=== PATIENT | male | born 1980 | race Caucasian/White ===

== ENCOUNTER 2018-08-30 21:49 | Emergency (ER) | payer OTHER ==
[~2018-08-30] VITALS: Ht 172.7 cm; Wt 77.2 kg
[~2018-08-30 21:49] MED LIST: DOCU-144 PO; MAG355OR14 PO; OMEP20CA16 PO
[2018-08-30 22:05] VITALS: Ht 172.7 cm; Wt 77.2 kg
[2018-08-31] MEDS ORDERED: LIDOCAINE/MYLANTA 40 ML BTL PO ONE (00:30)
--- NOTE | 2018-08-31 00:38 | ERD ---
ER Documentation Chief Complaint Chief Complaint GEN ABD PAIN; NO OTHER S/S X1HR HPI This is a 38-year-old male patient presents emergency room with complaint of non-radiating periumbilical abdominal pain starting approximately 3 hours [employer]. States pain is not related to eating as he did not eat dinner due to the pain. No nausea, no vomiting, pain is non-radiating cramping, no recent injury, no recent travel, no sick contacts. History significant for gastritis, appendectomy 23 years ago. Patient states he had bowel movement this morning which was "normal." No dysuria. Patient states he has a small mass in his left testicle that is being evaluated by his primary care provider. Denies any scrotal pain or penile discharge, no recent weight loss, no unusual bruising, no hematuria. Patient denies alcohol use. No recent fevers or illnesses. Patient is alert, appropriate behavior, NAD at time of evaluation. ROS All systems reviewed and are negative except as per history of present illness. Medications Home Meds Active Scripts Docusate Sodium* (Colace*) 100 Mg Capsule, 100 MG PO DAILY for 10 Days, #10 CAP Prov:TORI INFANTE NP 08/31/18 Mag Hydrox/Al Hydrox/Simeth (Maalox Advanced Suspension) 355 Ml Oral.susp, 10 ML PO BID for Indigestion for 10 Days, #200 ML Prov:TORI INFANTE NP 08/31/18 Omeprazole* (Omeprazole*) 20 Mg Capsule.dr, 20 MG PO DAILY for 30 Days, #30 CAP Prov:TORI INFANTE NP 08/31/18 Reported Medications [none] Unknown Strength No Conflict Check 09/09/15 Allergies Allergies: Coded Allergies: No Known Allergy (Unverified , 09/09/15) PMhx/Soc History of Surgery: Yes (APPENDECTOMY) Anesthesia Reaction: No Hx Neurological Disorder: No Hx Respiratory Disorders: No Hx Cardiac Disorders: No Hx Psychiatric Problems: No Hx Miscellaneous Medical Probl: No Hx Alcohol Use: Yes (ON WEEKENDS) Hx Substance Use: No Hx Tobacco Use: No Smoking Status: Never smoker FmHx Family History: No diabetes, No coronary disease, No other Physical Exam Vitals Vital Signs Date Temp Pulse Resp B/P (MAP) Pulse Ox O2 O2 Flow FiO2 Time Delivery Rate 08/31/18 97.7 65 18 125/85 100 Room Air 02:49 (98) 08/30/18 97.6 72 18 128/84 99 22:05 (99) Physical Exam Const: No acute distress Head: Atraumatic Eyes: Normal Conjunctiva, PERRL ENT: Normal External Ears, TM clear BL, Nose. Pharynx pink, I think that is when I can find moist, no lesions or exudate there is one person they could not find. Neck: Full range of motion. No meningismus. No lymphadenopathy Resp: Clear to auscultation bilaterally, no increased work of breathing Cardio: Regular rate and rhythm, no murmurs Abd: Soft, tender at upper periumbilical, no epigastric tenderness. non distended. Normal bowel sounds, no hepato-or splenomegaly. Negative Santiago. No rebound tenderness. Skin: No petechiae or rashes Back: No midline or flank tenderness, no CVT Ext: No cyanosis, or edema Neur: Awake and alert, clear speech, steady gait Psych: Normal Mood and Affect Results 24 hrs Laboratory Tests Test 08/31/18 00:40 Urine Color STRAW Urine Clarity CLEAR Urine pH 7.0 Urine Specific [place] 1.006 Urine Ketones NEGATIVE mg/dL Urine Nitrite NEGATIVE mg/dL Urine Bilirubin NEGATIVE mg/dL Urine Urobilinogen NEGATIVE mg/dL Urine Leukocyte Esterase NEGATIVE Sweetie/ul Urine Hemoglobin NEGATIVE mg/dL Urine Glucose NEGATIVE mg/dL Urine Total Protein NEGATIVE mg/dl Current Medications Medications Dose Sig/[place] Start Time Status Last (Trade) Ordered Route PRN Stop Time Admin Dose Reason Admin 40 ml ONCE ONCE 08/31/18 DC 08/31/18 Miscellaneous PO 00:30 00:36 Medication 08/31/18 00:31 (Gi Cocktail (2)) Procedures/MDM PROCEDURES/MDM EKG: Read by Dr. Santana, attending physician. EKG shows bradycardia sinus rhythm at a rate of 56 bpm. No arrhythmias, acute ST elevations or T wave changes were noted. DIAGNOSTIC IMAGING: Read by radiologist. KUB IMPRESSION: No bowel obstruction or ileus. LAB INTERPRETATION: UA: no UTI, no ketones, no glucose -Medications: GI cocktail Patient tolerated medication well with no adverse reactions. Patient reported improvement in pain. MDM: This is a 38 yo male patient who presents to the ER with c/o mid abd pain starting earlier this evening. No nausea, no vomiting, no diarrhea. Normal BM this morning. No recent illness. Hx of GERD. Pt was given GI cocktail with reported resolution of symptoms. KUB does not show ileus or obstruction. The patient presents with abdominal pain without definite explanation found on evaluation today. However, there are no signs of peritonitis or other life- threatening or serious etiology. The patient appears stable for discharge and has been instructed to return immediately if the symptoms worsen in any way, or in 8-12 hours if not improved for re-evaluation. DISPOSITION and PLAN: RX: docusate, Maalox, Omeprazole The patient has been discharge home to follow-up with community physician. Departure Diagnosis: Primary Impression: Abdominal pain Abdominal location: generalized Qualified Codes: R10.84 - Generalized abdominal pain Condition: Stable TORI INFANTE NP Aug 31, 2018 00:38
[2018-08-31 02:49] VITALS: BP 125/85; PULSE 65; RESP 18
== END 2018-08-31 02:50 | disposition home or self-care (01) ==
LOC: FTE 21:49
DX: R10.84 Generalized abdominal pain (principal)
CPT/HCPCS: 74018; 81003; 93005